=== PATIENT | male | born 1970 | race Caucasian/White ===

== ENCOUNTER 2025-05-26 16:25 | Inpatient (IN) | payer OTHER ==
[2025-05-26 16:57] VITALS: BMI 20.2
[2025-05-26] MEDS ORDERED: NICOTINE POLACRILEX 2 MG LOZENGE BC PRN (17:35)
[2025-05-26] MEDS ORDERED: POLYETHYLENE GLYCOL (HEALTHYLAX) 3350 17 GM PACKET PO PRN (17:35)
[2025-05-26] MEDS ORDERED: MAG HYDROX/AL HYDROX/SIMETH 30 ML UNIT-DOSE CUP PO PRN (17:35)
[2025-05-26] MEDS ORDERED: IBUPROFEN 400 MG TABLET (FP) PO PRN (17:35)
[2025-05-26] MEDS ORDERED: NICOTINE POLACRILEX 2 MG GUM BUC PRN (17:35)
[2025-05-26] MEDS ORDERED: IBUPROFEN 600 MG TABLET (FP) PO PRN (17:35)
[2025-05-26] MEDS ORDERED: guaiFENesin 600 MG TABLET.ER (FP) PO PRN (17:35)
[2025-05-26] MEDS ORDERED: BENZONATATE 200 MG CAPSULE PO PRN (17:35)
[2025-05-26] MEDS ORDERED: BENZOCAINE/MENTHOL (CHLORASEPTIC ) LOZENGE MM PRN (17:35)
[2025-05-26] MEDS ORDERED: LOPERAMIDE HCL 2 MG CAPSULE PO PRN (17:35)
[2025-05-26] MEDS ORDERED: MAGNESIUM HYDROX 2400MG/30ML ORAL SUSPENSION 30 ML CUP PO PRN (17:35)
[2025-05-26] MEDS ORDERED: ACETAMINOPHEN 325 MG TABLET (FP) PO PRN (17:35)
[2025-05-26] MEDS ORDERED: NALOXONE (NARCAN) HCL 4 MG/0.1 ML SPRAY NS PRN (17:35)
[2025-05-26] MEDS: THIAMINE 100 MG TABLET PO SCH (22:43)
[2025-05-26] MEDS: MELATONIN 5 MG TABLETS PO SCH (22:43)
[2025-05-27 00:31] LABS: EPI CELLS 19 /uL (0-25.1); HYALINE CASTS 4 /uL (0-3.1); URINE APPEARANCE CLOUDY; URINE BACTERIA 66 /uL (0-1359); URINE BILIRUBIN NEGATIVE (NEGATIVE); URINE COLOR YELLOW; URINE GLUCOSE (UA) NEGATIVE (NEGATIVE); URINE KETONE TRACE (NEGATIVE); URINE LEUK ESTERASE TRACE (NEGATIVE); URINE NITRITE NEGATIVE (NEGATIVE); URINE PROTEIN 1+ (NEGATIVE); URINE RBC 32 /uL (0-23.9); URINE UROBILINOGEN 1.0 mg/dL (0.2-1.0); URINE WBC 131 /uL (0-25.8)
[2025-05-27] MEDS: PRENATAL VITAMINS W/ FOLIC ACID TABLET (FP) PO SCH (10:25)
[2025-05-27] MEDS: clonazePAM 1 MG ODT TABLETS SL ONE (11:52)
[2025-05-27 12:33] LABS: MCHC 31.8 g/dl (32.3-36.5); MEAN CELL VOLUME 89.4 fl (79.0-92.2); MEAN PLT VOLUME 10.1 fl (9.4-12.4); RDW 13.9 % (12.2-16.1)
[2025-05-27 13:33] LABS: GLUCOSE,RANDOM 89.0 mg/dL (74-106); TOT PROT 6.9 g/dl (6.4-8.2)
[2025-05-27 13:34] LABS: CO2 29.0 mmol/L (21-32)
[2025-05-27 13:36] LABS: ALK PHOS 64.0 U/L (40-150)
[2025-05-27 13:38] LABS: SGOT/AST 27.0 U/L (5-34); SGPT/ALT 20.0 U/L (0-55)
[2025-05-27 13:39] LABS: CREATININE 0.66 mg/dL (0.55-1.3)
[2025-05-27] MEDS: clonazePAM 1 MG ODT TABLETS SL SCH (13:57)
[2025-05-27 14:00] LABS: SYPHILIS W/ RPR CONF NON-REACTIVE (NONREACTIVE)
[2025-05-27 14:30] LABS: HCV DIAGNOSTIC IN-HOUSE W/RFLX REACTIVE (NONREACTIVE)
[2025-06-01 05:33] VITALS: RESP 16
[2025-06-02 05:42] VITALS: BP 119/79; PULSE 79; TEMP 97.5
[2025-06-02] MEDS ORDERED: clonazePAM 1 MG ODT TABLETS SL SCH (14:00)
== END 2025-06-02 09:50 | disposition home or self-care (01) | DRG 895 ==
LOC: YASAS 16:25 → Y3NR 19:32 → Y3W 05-27 10:22 → Y3NR 05-27 11:23 → Y3W 05-27 11:25
PROVIDERS: ADMIT Psychiatry & Neurology Pain Medicine; ATTEND Psychiatry & Neurology Pain Medicine
PROC: HZ42ZZZ Group Counseling for Substance Abuse Treatment, Cognitive-Behavioral (ICD-10-PCS; principal; 2025-05-26)
DX: F11.20 Opioid dependence, uncomplicated (principal); F14.20 Cocaine dependence, uncomplicated; F41.8 Other specified anxiety disorders; M54.50 Low back pain, unspecified; F17.210 Nicotine dependence, cigarettes, uncomplicated
CPT/HCPCS: 36415; 71046-TC-FY; 80053; 80305; 80307; 81003; 85027; 86780; 86803; 87522; 87811; 93005; 93010